=== PATIENT | female | born 1970 | race Caucasian/White ===

== ENCOUNTER 2022-06-11 03:49 | Observation (INO) ==
[2022-06-11] MEDS ORDERED: Naloxone 0.4 MG/ML INJ IVP PRN ×2 (05:39→13:15)
[2022-06-11] MEDS ORDERED: Ondansetron 4 MG/2 ML VIAL IVP PRN (05:39)
[2022-06-11] MEDS ORDERED: 0.9 % Sodium Chloride 1,000 ML IVC SCH ×2 (05:45→11:00)
[2022-06-11] MEDS ORDERED: Dextrose Gel 15 GM/37.5 ML TUBE PO PRN ×4 (06:29→13:15)
[2022-06-11] MEDS ORDERED: D5% in Water 1,000 ML IVC PRN ×2 (06:29→13:15)
[2022-06-11] MEDS ORDERED: *HR* Dextrose 50 % in Water (Syg) 50 ML SYRINGE IVP PRN ×2 (06:29→13:15)
[2022-06-11 06:54] LABS: Hematocrit 33.8 % (35.3-44.9); Hemoglobin 11.2 g/dL (11.5-15.4); Mean Corpuscular HGB Conc 33.1 g/dL (31.6-35.5); Mean Corpuscular Hemoglobin 30.1 pg (28.0-33.3); Mean Corpuscular Volume 90.9 fL (83.0-100.0); Mean Platelet Volume 9.6 fL (9.4-12.4); Platelet Count 290 K/mcL (140-400); Red Blood Count 3.72 M/mcL (3.82-4.97); Red Cell Distribution Width 13.2 % (11.5-14.5); White Blood Count 18.4 K/mcL (4.3-11.1)
[2022-06-11 07:01] LABS: INR 1.3; Prothrombin Time 14.3 Seconds (9.4-12.1)
[2022-06-11 07:04] LABS: Activated Partial Thrombo Time 29.7 Seconds (26.0-36.0)
[2022-06-11 07:14] LABS: Alanine Aminotransferase 153 Units/L (7-52); Albumin 3.1 g/dL (3.5-5.7); Albumin/Globulin Ratio 1.2 (1.1-2.2); Alkaline Phosphatase 244 Units/L (34-104); Aspartate Amino Transferase 80 Units/L (13-39); BUN/Creatinine Ratio 15 (6-26); Bilirubin,Total 1.2 mg/dL (0.3-1.0); Blood Urea Nitrogen 8 mg/dL (6-20); Calcium 7.9 mg/dL (8.6-10.3); Carbon Dioxide 21 mEq/L (23-29); Chloride 107 mEq/L (98-107); Globulin 2.5 g/dL (2.4-3.5); Glucose 116 mg/dL (70-105); Osmolality,Calculated 281 (280-300); Potassium 3.7 mEq/L (3.5-5.1); Sodium 136 mEq/L (136-145); Total Protein 5.6 g/dL (6.4-8.9)
[2022-06-11] MEDS ORDERED: cefTRIAXone 1,000 MG in Water for inj. (sterile) 10 ML IVP ONE (07:16)
[2022-06-11] MEDS ORDERED: cefTRIAXone 2,000 MG in 0.9 % Sodium Chloride Mini Bag 100 ML IVPB SCH (09:00)
[2022-06-11 10:26] LABS: Bacteria,Urine Few per hpf (None-Few); Bilirubin,Urine Small (Negative); Blood,Urine Moderate (Negative); Clarity,Urine Turbid (Clear); Color,Urine Dark-Yellow (Yellow); Glucose,Urine (UA) 70 mg/dL (Normal); Ketones,Urine 100 mg/dL (Negative); Leukocyte Esterase,Urine Large (Negative); Mucus,Urine Many per lpf (None-Few); Nitrite,Urine Negative (Negative); Protein,Urine 70 mg/dL (Neg-Trace); RBC,Urine TNTC per hpf (0-3); Specific Gravity,Urine 1.021 (1.010-1.025); Squamous Epithelial Cell,Urine Few per hpf (None-Few); Urobilinogen,Urine Normal (Normal); WBC,Urine TNTC per hpf (0-3)
[2022-06-11] MEDS ORDERED: *HR* Rocuronium Bromide 50 MG/5 ML VIAL ONE (10:43)
[2022-06-11] MEDS ORDERED: *HR* Midazolam HCl 2 MG/2 ML VIAL ONE (10:43)
[2022-06-11] MEDS ORDERED: *HR* Propofol 200 MG/20 ML VIAL IVP ONE (10:43)
[2022-06-11] MEDS ORDERED: *HR* FentaNYL (PF) 100 MCG/2 ML VIAL ONE (10:43)
[2022-06-11] MEDS ORDERED: Ondansetron 4 MG/2 ML VIAL ONE (10:43)
[2022-06-11] MEDS ORDERED: *HR* FentaNYL (PF) 100 MCG/2 ML VIAL IVP PRN (11:36)
[2022-06-11] MEDS ORDERED: *HR* HYDROmorphone PF 0.5 MG/0.5 ML SYRINGE IVP PRN (11:36)
[2022-06-11] MEDS ORDERED: Iopamidol - 300 50 ML VIAL ONE (11:48)
[2022-06-11] MEDS ORDERED: Lidocaine -MPF 2% 2 ML VIAL ONE (12:05)
[2022-06-11] MEDS: 0.9 % Sodium Chloride 1,000 ML IVC SCH ×2 (16:29→21:03)
[2022-06-11] MEDS: *HR* Heparin 5,000 UNIT/ML VIAL SQ SCH (17:10)
[2022-06-11] MEDS ORDERED: *HR* Heparin 5,000 UNIT/ML VIAL SQ SCH (18:00)
[2022-06-11] MEDS: Ondansetron 4 MG/2 ML VIAL IVP PRN (21:00)
[2022-06-11] MEDS ORDERED: *HR* HYDROmorphone 2 MG TABLET PO ONE (22:42)
[2022-06-12 05:59] LABS: Basophils % 0.2 %; Eosinophils % 0.1 %; Hemoglobin 10.8 g/dL (11.5-15.4); Immature Granulocytes % 1.7 % (0-4); Lymphocytes # 0.8 K/mcL (0.6-4.6); Mean Corpuscular HGB Conc 32.7 g/dL (31.6-35.5); Mean Corpuscular Hemoglobin 29.9 pg (28.0-33.3); Mean Corpuscular Volume 91.4 fL (83.0-100.0); Monocytes # 1.4 K/mcL (0.0-1.3); Monocytes % 7.2 %; Neutrophils # 16.3 K/mcL (1.6-8.9); Platelet Count 321 K/mcL (140-400); Red Blood Count 3.61 M/mcL (3.82-4.97); Red Cell Distribution Width 13.4 % (11.5-14.5); Segmented Neutrophils % 86.8 %; White Blood Count 18.7 K/mcL (4.3-11.1)
[2022-06-12] MEDS: *HR* Heparin 5,000 UNIT/ML VIAL SQ SCH ×2 (06:06→17:56)
[2022-06-12 06:15] LABS: BUN/Creatinine Ratio 29 (6-26); Blood Urea Nitrogen 17 mg/dL (6-20); Calcium 8.2 mg/dL (8.6-10.3); Carbon Dioxide 25 mEq/L (23-29); Chloride 106 mEq/L (98-107); Glucose 163 mg/dL (70-105); Magnesium 1.9 mg/dL (1.6-2.6); Osmolality,Calculated 287 (280-300); Potassium 4.3 mEq/L (3.5-5.1); Sodium 136 mEq/L (136-145)
[2022-06-12] MEDS: 0.9 % Sodium Chloride 1,000 ML IVC SCH ×2 (07:45→18:49)
[2022-06-12] MEDS: cefTRIAXone 2,000 MG in 0.9 % Sodium Chloride Mini Bag 100 ML IVPB SCH (07:46)
[2022-06-12] MEDS ORDERED: cefTRIAXone 2,000 MG in 0.9 % Sodium Chloride Mini Bag 100 ML IVPB SCH (08:00)
[2022-06-12] MEDS: Ondansetron 4 MG/2 ML VIAL IVP PRN (09:41)
[2022-06-12] MEDS: BuPROPion XL (24 HR) 150 MG TABLET PO SCH (09:41)
[2022-06-12] MEDS ORDERED: Prochlorperazine 10 MG/2 ML VIAL IVP ONE (11:27)
[2022-06-12 13:18] LABS: Bilirubin,Direct 0.5 mg/dL (0.0-0.2); Bilirubin,Indirect 0.7 mg/dL (0.0-1.0)
[2022-06-12 16:45] LABS: Hepatitis B Surface Antigen Nonreactive (Nonreactive)
[2022-06-12 17:14] LABS: Hepatitis B Core IgM Nonreactive (Nonreactive); Hepatitis C Virus Antibody Nonreactive (Nonreactive)
[2022-06-12 17:15] LABS: Hepatitis A Antibody IgM Nonreactive (Nonreactive)
[2022-06-12] MEDS: Latanoprost 2.5 ML BOTTLE BOTH EYES SCH (20:22)
[2022-06-13 02:34] LABS: Basophils # 0.1 K/mcL (0.0-0.2); Basophils % 0.4 %; Eosinophils # 0.2 K/mcL (0.0-0.6); Eosinophils % 1.6 %; Hematocrit 34.2 % (35.3-44.9); Immature Granulocytes % 2.7 % (0-4); Lymphocytes # 1.1 K/mcL (0.6-4.6); Lymphocytes % 7.2 %; Mean Corpuscular HGB Conc 32.2 g/dL (31.6-35.5); Mean Corpuscular Hemoglobin 29.3 pg (28.0-33.3); Mean Platelet Volume 9.9 fL (9.4-12.4); Monocytes # 1.2 K/mcL (0.0-1.3); Monocytes % 7.9 %; Neutrophils # 12.3 K/mcL (1.6-8.9); Platelet Count 363 K/mcL (140-400); Red Blood Count 3.76 M/mcL (3.82-4.97); Red Cell Distribution Width 13.5 % (11.5-14.5); Segmented Neutrophils % 80.2 %; White Blood Count 15.3 K/mcL (4.3-11.1)
[2022-06-13 02:55] LABS: Alanine Aminotransferase 135 Units/L (7-52); Albumin 2.9 g/dL (3.5-5.7); Alkaline Phosphatase 246 Units/L (34-104); Aspartate Amino Transferase 87 Units/L (13-39); BUN/Creatinine Ratio 27 (6-26); Bilirubin,Total 0.7 mg/dL (0.3-1.0); Blood Urea Nitrogen 18 mg/dL (6-20); Calcium 8.2 mg/dL (8.6-10.3); Carbon Dioxide 23 mEq/L (23-29); Chloride 106 mEq/L (98-107); Globulin 2.8 g/dL (2.4-3.5); Glucose 236 mg/dL (70-105); Magnesium 1.5 mg/dL (1.6-2.6); Osmolality,Calculated 294 (280-300); Potassium 3.9 mEq/L (3.5-5.1); Sodium 137 mEq/L (136-145); Total Protein 5.7 g/dL (6.4-8.9)
[2022-06-13] MEDS ORDERED: *HR* Metoprolol 5 MG/5 ML VIAL IVP ONE (03:44)
[2022-06-13] MEDS ORDERED: Ibuprofen 600 MG TABLET PO ONE (03:44)
[2022-06-13] MEDS: 0.9 % Sodium Chloride 1,000 ML IVC SCH ×2 (05:49→14:38)
[2022-06-13] MEDS: *HR* Heparin 5,000 UNIT/ML VIAL SQ SCH ×2 (05:51→16:42)
[2022-06-13] MEDS: BuPROPion XL (24 HR) 150 MG TABLET PO SCH (09:06)
[2022-06-13] MEDS: cefTRIAXone 2,000 MG in 0.9 % Sodium Chloride Mini Bag 100 ML IVPB SCH (09:07)
[2022-06-13] MEDS ORDERED: Ibuprofen 400 MG TABLET PO PRN (12:02)
[2022-06-13] MEDS: Ondansetron 4 MG/2 ML VIAL IVP PRN (14:38)
[2022-06-13] MEDS ORDERED: polyethylene glycoL 3350 17 GM POWD.PACK PO PRN (21:00)
[2022-06-13] MEDS: Latanoprost 2.5 ML BOTTLE BOTH EYES SCH (21:20)
[2022-06-14] MEDS: 0.9 % Sodium Chloride 1,000 ML IVC SCH (01:55)
[2022-06-14] MEDS: *HR* Heparin 5,000 UNIT/ML VIAL SQ SCH (05:01)
[2022-06-14 06:32] LABS: Hematocrit 36.4 % (35.3-44.9); Mean Corpuscular Hemoglobin 29.7 pg (28.0-33.3); Mean Corpuscular Volume 90.1 fL (83.0-100.0); Mean Platelet Volume 9.8 fL (9.4-12.4); Platelet Count 417 K/mcL (140-400); Red Blood Count 4.04 M/mcL (3.82-4.97); Red Cell Distribution Width 13.6 % (11.5-14.5); White Blood Count 13.8 K/mcL (4.3-11.1)
[2022-06-14 06:58] LABS: Albumin/Globulin Ratio 1.2 (1.1-2.2); Bilirubin,Direct 0.4 mg/dL (0.0-0.2); Bilirubin,Indirect 0.6 mg/dL (0.0-1.0); Globulin 2.6 g/dL (2.4-3.5); Total Protein 5.6 g/dL (6.4-8.9)
[2022-06-14] MEDS: BuPROPion XL (24 HR) 150 MG TABLET PO SCH (09:14)
[2022-06-14] MEDS: cefTRIAXone 2,000 MG in 0.9 % Sodium Chloride Mini Bag 100 ML IVPB SCH (09:14)
[2022-06-15 07:03] VITALS: BP 144/83; PULSE 69; TEMP 98; O2SAT 93
== END 2022-06-14 15:41 | disposition home or self-care (01) ==
LOC: 3BNU → SUATTDRO 05:34
PROVIDERS: ADMIT Internal Medicine; ATTEND Student in an Organized Health Care Education/Training Program